=== PATIENT | male | born 1955 | race Caucasian/White ===

== ENCOUNTER → 2017-11-28 | Outpatient (CLI) | payer OTHER ==
--- NOTE | 2017-11-28 13:32 | XR ---
EXAMINATION TYPE: XR shoulder complete LT DATE OF EXAM: 11/28/2017 COMPARISON: NONE HISTORY: 62-year-old male with left shoulder pain TECHNIQUE: 3 views FINDINGS: Limited assessment of the acromion and distal clavicle as well as the overlying soft tissues due to o verexposure. Within this limitation, no obvious acute fracture or dislocation is seen. Possible high density nodul e peripheral left midlung. IMPRESSION: 1. Limited, overpenetrated exam. No definite acute osseous abnormality seen. 2. Suggestion of a high density nodule peripheral left mid lung. This could represent a calcified gra nuloma. Consider PA and lateral views of the chest.
== END | disposition home or self-care (01) ==
LOC: RADXRYALE 11:50
PROVIDERS: ATTEND Internal Medicine
DX: M25.512 Pain in left shoulder (principal)

== ENCOUNTER → 2017-12-09 | Outpatient (CLI) | payer OTHER ==
--- NOTE | 2017-12-09 11:44 | XR ---
EXAMINATION TYPE: XR chest 2V DATE OF EXAM: 12/09/2017 COMPARISON: NONE HISTORY: Pulmonary nodule TECHNIQUE: Frontal and lateral views of the chest are obtained. FINDINGS: There is no focal air space opacity, pleural effusion, or pneumothorax seen. The cardiac silhouette size is within normal limits. The osseous structures are intact. Possible left midlung a nd right lower lung pulmonary nodules are seen measuring approximately 7 mm and 1.2 cm. Right nodule could also represent a nipple shadow. Multilevel mild degenerative changes of the thoracic spine are noted. IMPRESSION: 1. Possible bilateral pulmonary nodules although the right pulmonary nodule could represent an overly ing nipple shadow. CT thorax is recommended for further evaluation. 2. No focal consolidation.
== END | disposition home or self-care (01) ==
LOC: RADXRYALE 11:25
PROVIDERS: ATTEND Internal Medicine
DX: R91.1 Solitary pulmonary nodule (principal)
CPT/HCPCS: 71046

== ENCOUNTER → 2017-12-26 | Outpatient (CLI) | payer OTHER ==
--- NOTE | 2017-12-26 17:20 | CT ---
EXAMINATION TYPE: CT chest w con DATE OF EXAM: 12/26/2017 COMPARISON: NONE HISTORY: Pulmonary nodules on cxr. CT DLP: 647.5 mGycm, Automated exposure control for dose reduction was used. CONTRAST: Performed injected with 100 mL of Omnipaque 300. TECHNIQUE: Axial images were obtained at 5 mm thick sections. Reconstructed images are reviewed on [employer] computer in the coronal plane. FINDINGS: Portion of the thyroid visualized is normal. No suspicious lung nodules or focal infiltrates are present. There is a calcified granuloma within th e right lung measuring 0.7 cm. A left midlung nodule with central calcification compatible with granu cesar measures 0.8 cm. No enlarged mediastinal or hilar adenopathy is evident. There are small superior mediastinal and pr etracheal lymph nodes present. A few small aortopulmonic window lymph nodes are present. The ascendin g aorta diameter at the level of the main pulmonary artery is 3.8 cm. The main pulmonary artery diam eter at the bifurcation is 2.9 cm. Mild coronary artery calcification is present. Limited CT sections are obtained through the upper abdomen. There is a 2.5 cm cyst measuring 9 Hounsf ield units on the lateral mid left kidney.. IMPRESSIONS: 1. . Couple calcified granuloma within the bilateral lungs discussed above.
== END | disposition home or self-care (01) ==
LOC: RADCTMAIN 14:46
PROVIDERS: ATTEND Internal Medicine
DX: J98.4 Other disorders of lung (principal)
CPT/HCPCS: 71260; Q9967

== ENCOUNTER → 2018-01-01 | Outpatient (CLI) | payer OTHER ==
--- NOTE | 2018-01-01 08:05 | MR ---
EXAMINATION TYPE: MR shoulder LT wo con DATE OF EXAM: 01/01/2018 COMPARISON: NONE HISTORY: Pain in left shoulder TECHNIQUE: Multiplanar, multisequence imaging of the left shoulder is performed without contrast. FINDINGS: Rotator Cuff: There is a complete tear of the supraspinatus with approximately 2.8 cm retraction and muscular atrop hy seen on sagittal T1 and PD sequences image 28. A small amount of debris/hemosiderin and joint flui d are seen replacing the supraspinatus distal tendon. There is an intrasubstance tear measuring 1.3 x 1.2 cm of the infraspinatus at the myotendinous junct ion, fraying of both the articular surface and bursal surface fibers, and partial-thickness infraspin atus tear of the anterior and mid fibers measuring approximately 1.6 x 1.0 cm with the posterior fibe rs remaining. This is superimposed upon tendinopathy. There is a 4 mm intrasubstance tear of the subscapularis distally superimposed upon moderate tendinop athy with bursal surface joint fluid surrounding the subscapularis. There is also fraying of the dist al insertional fibers crossing this bicipital groove. The teres minor is intact and unremarkable. Acromioclavicular Joint: There is mild acromioclavicular joint arthropathy demonstrated as small mauricio inal osteophytes, capsular hypertrophy and few subchondral cysts. Glenohumeral Joint: Mild posterior joint space narrowing is seen. No focal cartilaginous defects. Labrum: There is a displaced anterior superior labral tear with labral degeneration of the inferior a nterior and inferior posterior labrum. Biceps Tendon: The long head of biceps is in normal location within bicipital groove. However there i s increased attenuation of the biceps in the intra-articular portion at the insertion of the biceps a nchor. Bone marrow signal: No focal abnormal marrow signal is appreciated. Other: Small joint effusion is present. Fluid is seen within the subcoracoid and subacromial/subdelto id bursa. IMPRESSION: 1. Complete supraspinatus tear with muscular atrophy and myotendinous retraction of approximately 2.8 cm with hemosiderin and debris replacing the distal supraspinatus tendon. 2. Intrasubstance 1.3 x 1.2 cm tear of the infraspinatus at the myotendinous junction. Additionally t here is articular surface and bursal surface fraying and a partial-thickness insertional fiber tear o f the anterior and mid fibers measuring 1.6 x 1.0 cm superimposed upon tendinopathy. 3. 4 mm intrasubstance tear of the subscapularis superimposed upon moderate tendinopathy. 4. Displaced anterior superior labral tear and labral degeneration of the inferior anterior inferior posterior labrum. 5. Small joint effusion and fluid within the subcoracoid as well as subacromial/subdeltoid bursa that may represent bursitis. 6. Mild acromioclavicular arthropathy.
== END | disposition home or self-care (01) ==
LOC: RADMRIMAIN 06:01
PROVIDERS: ATTEND Orthopaedic Surgery
DX: M75.122 Complete rotator cuff tear or rupture of left shoulder, not specified as traumatic (principal); S46.812A Strain of other muscles, fascia and tendons at shoulder and upper arm level, left arm, initial encounter; S43.492A Other sprain of left shoulder joint, initial encounter; M13.812 Other specified arthritis, left shoulder; M67.814 Other specified disorders of tendon, left shoulder; M62.50 Muscle wasting and atrophy, not elsewhere classified, unspecified site

== ENCOUNTER 2018-02-05 06:44 | Day surgery (SDC) | payer OTHER ==
[2018-02-02 15:52] VITALS: BMI 35.4
--- NOTE | 2018-02-04 14:50 | HP ---
HISTORY AND PHYSICAL Holger Hernandez is a 63-year-old patient seen with progressive left shoulder pain. We discussed treatment options. He elected to proceed with arthroscopy. Consent was obtained. Medical clearance was provided by Dr. Koo. PAST MEDICAL HISTORY: Hypertension, hyperlipidemia. PAST SURGICAL HISTORY: Noncontributory. DAILY MEDS: 1. Atorvastatin. 2. Lisinopril/hydrochlorothiazide. 3. Metoprolol. ALLERGIES: None reported. SOCIAL HISTORY: The patient currently smokes cigars. PHYSICAL EXAMINATION: Evaluation of left shoulder: Flexion 90 degrees, abduction 70 degrees, external rotation is 50 degrees with some weakness. There is tenderness along the anterior lateral acromion and rotator cuff insertion site. Positive impingement sign at 60 degrees. Drop-arm sign is positive. Distal neurovascular exam is intact. Left shoulder radiographs revealed a type 2 anterior acromion, cystic changes of the tuberosity. An MRI of the left shoulder revealed a retracted rotator cuff tear as well as a labral tear. IMPRESSION: 1. Left shoulder impingement with rotator cuff tear. 2. Left shoulder labral tear. 3. Hypertension. Hyperlipidemia. 1. Tobacco use. PLAN: Left shoulder arthroscopy with subacromial decompression, probable arthroscopic rotator cuff repair and debridement. MMODL / IJN: [id number] /
[~2018-02-05 06:44] MED LIST: DEXAMETHASONE SOD PHOSPHATE 10 MG/ML 1 ML VIAL IV ONE; HYDROmorphone 0.5 MG/0.5 ML SYRINGE IVP PRN; LACTATED RINGERS 1,000 ML IV SCH; LIDOCAINE 1% 20 ML VIAL (10MG/ML) FOR IV START INTRADERMA PRN; MIDAZOLAM 2 MG/2 ML VIAL IV PRN; MORPHINE SULFATE 2 MG/ML SYRINGE IV PRN; ONDANSETRON 4 MG/2 ML VIAL IVP ONE; SCOPOLAMINE 1.5MG/72HR PATCH TRANSDERM ONE; ceFAZolin IN SWFI 2 GM/20 ML SYRINGE IVP ONE; fentaNYL (PF) 50 MCG/ML 2 ML AMP IV PRN; fentaNYL (PF) 50 MCG/ML 2 ML AMP ONE
[2018-02-05] MEDS ORDERED: ePHEDrine SULFATE/0.9% NACL/PF 50 MG/5 ML SYRINGE IV ONE (08:34)
[2018-02-05] MEDS ORDERED: fentaNYL (PF) 50 MCG/ML 2 ML AMP ONE (08:34)
[2018-02-05] MEDS ORDERED: PROPOFOL 10 MG/ML 20 ML VIAL IV ONE (08:34)
[2018-02-05] MEDS ORDERED: GLYCOPYRROLATE 0.2 MG/ML 2 ML VIAL ONE (08:34)
[2018-02-05] MEDS ORDERED: ROCURONIUM BROMIDE 10 MG/ML 10 ML VIAL IV ONE (08:34)
[2018-02-05] MEDS ORDERED: LIDOCAINE 1% INJ 10MG/ML (20 ML MDV) ONE (08:34)
[2018-02-05] MEDS ORDERED: ROPIVACAINE 5 MG/ML 30 ML VIAL ONE (08:34)
[2018-02-05] MEDS ORDERED: LIDOCAINE 2%-EPI 1:100,000 20 ML VIAL ONE (08:34)
[2018-02-05] MEDS ORDERED: SUCCINYLCHOLINE CHLORIDE 100 MG/5 ML SYR IV ONE (08:34)
[2018-02-05] MEDS ORDERED: MIDAZOLAM 2 MG/2 ML VIAL ONE (08:34)
[2018-02-05] MEDS ORDERED: LACTATED RINGERS 1,000 ML IV ONE (09:02)
[2018-02-05 10:35] VITALS: TEMP 97.2
--- NOTE | 2018-02-05 10:38 | P.OP ---
Date of Procedure: 02/05/18 Preoperative Diagnosis: Left shoulder impingement Postoperative Diagnosis: 1. Left shoulder rotator cuff tear 2. Left shoulder impingement 3. Left shoulder acromioclavicular joint osteoarthritis 4. Left shoulder partial long head biceps tendon tear 5. Left shoulder superficial anterior labral tear Procedure(s) Performed: 1. Left shoulder arthroscopic rotator cuff repair 2. Left shoulder arthroscopic subacromial decompression 3. Left shoulder arthroscopic Roula procedure 4. Left shoulder arthroscopic biceps tenotomy 5. Left shoulder arthroscopic debridement labral tear Implants: 6 Arthrex swivel lock anchors Anesthesia: GETA, regional (Interscalene block) Surgeon: Eliseo Grove Child Care Cook #1: Greg Claire Estimated Blood Loss (ml): 18 Pathology: none sent Condition: stable Disposition: PACU Indications for Procedure: 63-year-old patient seen with progressive left shoulder pain. After treatment options were discussed, he elected to proceed with arthroscopy. Operative Findings: See description of procedure Description of Procedure: Patient underwent a shoulder block by department of anesthesia. The patient was then taken to the operative suite. The patient underwent a general anesthetic by the department of anesthesia. The patient was placed into a lateral position and secured. There was appropriate padding of the bony prominence. Left shoulder was then prepped and draped in normal sterile orthopedic fashion. We placed the extremity in 10 pounds of longitudinal traction. A posterior incision was now made for a posterior working portal site. The trocar and cannula were inserted into the glenohumeral joint. Arthroscopy was initiated. Spinal needle was now inserted anteriorly, to ascertain the anterior working portal site. An incision was now made in that area, a trocar was inserted followed by a probe. There was an obvious massive rotator cuff tear visualized from glenohumeral side. There was superficial tearing of the superior labrum. There was partial tearing long head biceps tendon with hyperemia. There were some grade 1 chondromalacia changes but no osteochondral tears. I performed an arthroscopic biceps tenotomy. I debrided the labral tear down to stable tissue. The residual labrum was probed and found to be stable. Instruments now removed from the glenohumeral joint. Utilizing the posterior working portal site, the trocar and cannula were inserted into the subacromial space. Arthroscopy initiated. I made an incision 2 fingerbreadths lateral to the acromion. I introduced my trocar followed by my [employer] ablator. I now began ablating thick subacromial bursal tissue, which exposed the undersurface of the anterior acromion. This was diminished subacromial space. There was a very prominent anterior acromion. A motorized bur was introduced and a subacromial decompression was performed. I also excised some osteophytes off the inferior aspect of the distal clavicle. The AC joint was visualized and noted to be fairly arthritic. Our motorized bur was introduced in the anterior portal site and a Roula procedure was performed without difficulty, decompressing the AC joint nicely. I turned my attention to the rotator cuff. There was a massive tear measuring about 4 cm retracted 2 or 3 cm per freely mobile over the footprint. I debrided the margins getting down to stable rotator cuff tendon tissue. I abraded the footprint with a motorized bur. I created an director peoplesoft portal site off the lateral acromion. I introduced 3 medial anchors with 2 sutures each. I now passed all 12 limbs of suture through good bites of rotator cuff tendon. I now crisscrossed our sutures and introduced 3 lateral anchors which compressed the tendon along the footprint very nicely. All residual suture limbs were clipped. We had a good stable 2 row repair. I injected 1 mL of UCT intra-articular. Instruments now removed from the portal sites. All portal sites were approximated with nylon suture. Sterile dressings were applied followed by a shoulder immobilizer. Federico KHANNA assisted with the procedure. The patient was awakened, transferred to a bed, and taken to recovery in stable condition.
[2018-02-05 10:46] VITALS: RESP 16
[2018-02-05 11:49] VITALS: BP 114/73; PULSE 66
--- NOTE | 2018-02-05 18:32 | P.ONQ ---
Anesthesiology Proc Note - PNB - Peripheral Nerve Block Performed Left Interscalene Single Time Out Performed: Yes Procedure Start Time: :09 Procedure Stop Time: :12 Indication: Acute Post-Operative Pain, Requested by physician Sedation Type: Sedate with meaningful contact maintained Preparation: Sterile Prep Position: Supine Needle Size: 50mm (2") Needle Gauge: 21 Technique: Ultrasound Injectate: 0.5% Ropivacaine (see comment for volume) (ropi .5% 30cc) Blood Aspirated: No Pain Paresthesia on Injection Noted: No Resistance on Injection: Normal Events: Uneventful and Well Tolerated
== END 2018-02-05 12:24 | disposition home or self-care (01) ==
LOC: OR 06:44
PROVIDERS: ATTEND Orthopaedic Surgery
DX: M75.102 Unspecified rotator cuff tear or rupture of left shoulder, not specified as traumatic (principal); M25.812 Other specified joint disorders, left shoulder; M19.012 Primary osteoarthritis, left shoulder; S46.112A Strain of muscle, fascia and tendon of long head of biceps, left arm, initial encounter; S43.432A Superior glenoid labrum lesion of left shoulder, initial encounter; X58.XXXA Exposure to other specified factors, initial encounter; M94.212 Chondromalacia, left shoulder; M25.712 Osteophyte, left shoulder; I10 Essential (primary) hypertension; E78.5 Hyperlipidemia, unspecified; F17.290 Nicotine dependence, other tobacco product, uncomplicated; Z79.899 Other long term (current) drug therapy; Z79.82 Long term (current) use of aspirin
CPT/HCPCS: 64415; 29826; 29827; 29824; C1713 ×4; J2250; J1100; J2405; J2001; J3010; J2795; J0330; J2704; J0690

== ENCOUNTER → 2022-09-17 | Outpatient (CLI) | payer MEDICARE ==
--- NOTE | 2022-09-17 14:41 | XR ---
EXAMINATION TYPE: XR ribs bilat w pa chest xray DATE OF EXAM: 09/17/2022 11:16 AM INDICATION: Patient age:Male; 67 years old; Reason for study: M546 THOR PAIN; [facility]. COMPARISON: None TECHNIQUE: Frontal and oblique views of the bilateral ribs with frontal chest radiograph. FINDINGS: The ribs have a normal appearance. No evidence of fracture. Overall, the lungs are clear. The cardiac silhouette is normal in size. The remaining osseous structures are intact. IMPRESSION RIBS: No acute osseous pathology.
== END | disposition home or self-care (01) ==
LOC: RADXRYALE 11:01
PROVIDERS: ATTEND Internal Medicine
DX: M54.6 Pain in thoracic spine (principal)
CPT/HCPCS: 71111